=== PATIENT | female | born 1950 | race Caucasian/White ===

== ENCOUNTER 2017-01-26 10:23 | Emergency (ER) | payer MEDICARE ==
--- NOTE | 2017-01-26 11:06 | UC ---
Lower Extremity/Ankle HPI - HPI Summary HPI Summary: left foot pain for 2 days, worse last night, foot feels like it is swollen and pain is mostly bottom and lateral, no known injury - History of Current Complaint Chief Complaint: UCLowerExtremity Stated Complaint: FOOT COMPLAINT Time Seen by Provider: 01/26/17 11:03 Hx Obtained From: Patient ?: No Onset/Duration: Sudden Onset, Lasting Days - 2, Still Present, Worse Since - last night Severity Initially: Moderate Severity Currently: Moderate Pain Intensity: 5 - refused pain med Pain Scale Used: 0-10 Numeric Aggravating Factor(s): Standing, Ambulation Alleviating Factor(s): Rest, OTC Meds Able to Bear Weight: Yes - Allergies/Home Medications Allergies/Adverse Reactions: Allergies Allergy/AdvReac Type Severity Reaction Status Date / Time No Known Allergies Allergy Verified 09/20/14 13:25 Home Medications: Home Medications Verapamil SR TAB* [Calan Sr TAB*] 240 mg PO QAM 01/26/17 [History Confirmed 09/13] PMH/Surg Hx/FS Hx/Imm Hx Previously Healthy: Yes Endocrine History: Dyslipidemia Cardiovascular History: Hypertension - Surgical History Surgical History: Yes Surgery Procedure, Year, and Place: TONSILLECTOMY- AGE 16. UMBILICAL HERNIA REPAIR, 2001, [facility] [place]. LITHOTRIPSY- STENT INSERTION - SEVERAL- SOME DONE HERE AT [facility] [place]. LAST 10/05/12. lump in breast removed, benign - Family History Known Family History: Positive: Cardiac Disease - father, Hypertension - father Negative: Diabetes - Social History Occupation: Retired Lives: With Family Alcohol Use: None Substance Use Type: None Smoking Status (MU): Never Smoked Tobacco Review of Systems Constitutional: Negative Skin: Negative Eyes: Negative ENT: Negative Respiratory: Negative Cardiovascular: Negative Gastrointestinal: Negative Genitourinary: Negative Motor: Negative Neurovascular: Negative Musculoskeletal: Arthralgia - left foot Neurological: Negative Psychological: Negative All Other Systems Reviewed And Are Negative: Yes Physical Exam Triage Information Reviewed: Yes Appearance: Well-Appearing, No Pain Distress, Obese Vital Signs: Initial Vital Signs Temp 97.8 F 01/26/17 10:41 Pulse 62 01/26/17 10:41 Resp 18 01/26/17 10:41 BP 117/60 01/26/17 10:41 Pulse Ox 97 01/26/17 10:41 Vital Signs Reviewed: Yes Eye Exam: Normal Eyes: Positive: Conjunctiva Clear ENT Exam: Normal ENT: Positive: Normal ENT inspection, Hearing grossly normal, TMs normal. Negative: Nasal congestion, Nasal drainage, Tonsillar swelling, Tonsillar exudate, Trismus, Muffled/hoarse voice Dental Exam: Normal Neck exam: Normal Neck: Positive: Supple, Nontender, No Lymphadenopathy Respiratory Exam: Normal Respiratory: Positive: Chest non-tender, Lungs clear, Normal breath sounds, No respiratory distress, No accessory muscle use Cardiovascular Exam: Normal Cardiovascular: Positive: RRR, No Murmur, Pulses Normal, Brisk Capillary Refill Musculoskeletal Exam: Normal Musculoskeletal: Positive: Strength Intact, ROM Intact, Edema @ - left foot Neurological Exam: Normal Neurological: Positive: Alert, Muscle Tone Normal Psychological Exam: Normal Skin Exam: Normal Diagnostics - Radiology No standard instances Xray Interpretation: No Acute Changes Radiology Interpretation Completed By: Radiologist Lower Extremity Course/Dx - Course Course Of Treatment: Pain Med. follow with ortho and podiatry - Differential Dx/Diagnosis Differential Diagnosis/HQI/PQRI: Cellulitis, Contusion, Fracture (Closed), Sprain, Strain Provider Diagnoses: Left foot pain Discharge - Discharge Plan Condition: Stable Disposition: HOME Prescriptions: Hydrocodone-Acetaminophen [Hydrocodone/Acetaminophen 5-325 mg] 1 tab PO BID PRN #15 tab MDD 2 PRN Reason: Pain Patient Education Materials: Foot Contusion (ED) Referrals: Jd Schwartz MD [Primary Care Provider] - If Needed Yadiel Philip DPM [Doctor of Podiatric Medicine] - 5 Days
[2017-01-26 12:43] VITALS: BP 114/60
--- NOTE | 2017-01-26 12:46 | RAD ---
Indication: Left foot pain. 3 views of left foot demonstrates no fracture. No other bone or joint abnormality is identified. IMPRESSION: No definite fracture of left foot is noted.
== END 2017-01-26 13:03 | disposition home or self-care (01) ==
LOC: UCEAST 10:23
DX: M79.672 Pain in left foot (principal); E78.5 Hyperlipidemia, unspecified; I10 Essential (primary) hypertension
CPT/HCPCS: 99212; G0463

== ENCOUNTER 2017-06-06 07:50 | Day surgery (SDC) | payer MEDICARE ==
[~2017-06-06 07:50] MED LIST: Buffered Lidocaine 0.9% SYRIN* 5 ML/SYR SYRINGE INTRADERM ONE; NS 0.9% 1000 ML* 1,000 ML IV SCH
[2017-06-06] MEDS ORDERED: ceFAZolin 2 GM PREMIX (*) 50 ML IVPB ONE (08:11)
[2017-06-06] MEDS ORDERED: ceFAZolin 1 GM ADVAN(*) 1 GM ADDV.VIAL IVPB ONE (08:11)
[2017-06-06] MEDS ORDERED: Ondansetron INJ* 2 MG/ML VIAL IV PRN (09:14)
[2017-06-06] MEDS ORDERED: Acetaminophen TAB* 325 MG PO PRN (09:14)
[2017-06-06] MEDS ORDERED: DiMENhydriNATE IV* 50 MG/ML VIAL IV PUSH PRN (09:14)
[2017-06-06] MEDS ORDERED: Midazolam* 1 MG/ML 2 ML VIAL (2 MG) ONE ×2 (09:23→10:11)
[2017-06-06] MEDS ORDERED: Lidocaine 1% MPF wEPI 200,000* 30 ML SDV ONE (09:33)
[2017-06-06] MEDS ORDERED: Mineral Oil Sterile, TOPICAL* 25 ML BTL ONE (09:41)
[2017-06-06] MEDS ORDERED: Methylene Blue 0.5 %* 50 MG/10 ML AMP IV ONE (09:41)
[2017-06-06] MEDS ORDERED: KETAMINE HCL* 50 MG/ML 10 ML VIAL ONE (10:12)
[2017-06-06] MEDS ORDERED: fentaNYL* 50 MCG/ML 2 ML VIAL (100 MCG VIAL) ONE (10:12)
[2017-06-06] MEDS ORDERED: Lidocaine 2% PF * 5 ML VIAL ONE (10:18)
[2017-06-06] MEDS ORDERED: Famotidine IV* 10 MG/ML 2 ML (20 mg) ONE (10:18)
[2017-06-06] MEDS ORDERED: Propofol* 10 MG/ML 20 ML BTL IV PUSH ONE (10:18)
[2017-06-06 11:54] VITALS: BP 123/92
== END 2017-06-06 12:00 | disposition home or self-care (01) ==
LOC: OR 07:50
PROVIDERS: ATTEND Plastic Surgery
DX: C44.311 Basal cell carcinoma of skin of nose (principal); I10 Essential (primary) hypertension; F41.8 Other specified anxiety disorders; E66.01 Morbid (severe) obesity due to excess calories; Z85.820 Personal history of malignant melanoma of skin
CPT/HCPCS: 88305; 88331; 88332; A9270-GY; J0690; J2001; J2250; J2704; J3010

== ENCOUNTER 2018-10-31 08:14 | Day surgery (SDC) | payer MEDICARE ==
[~2018-10-31 08:14] MED LIST changes: +Acetaminophen TAB* 325 MG PO PRN; -Buffered Lidocaine 0.9% SYRIN* 5 ML/SYR SYRINGE INTRADERM ONE; +Buffered Lidocaine 1% SYRIN* 1 ML/SYRINGE INTRADERM ONE; -NS 0.9% 1000 ML* 1,000 ML IV SCH
[2018-10-31] MEDS ORDERED: Midazolam* 1 MG/ML 2 ML VIAL (2 MG) ONE (10:37)
--- NOTE | 2018-10-31 11:20 | OP ---
OPERATIVE NOTE: DATE OF OPERATION: 10/31/18 DATE OF : 46 SURGEON: Barry Burdick M.D. PREOPERATIVE DIAGNOSIS: Cataract, right eye. POSTOPERATIVE DIAGNOSIS: Cataract, right eye. OPERATIVE PROCEDURE: Extracapsular cataract extraction with intraocular lens implant, right eye. PROCEDURE: The patient was brought to the operating room after being given 1/2% Alcaine with epineph rine drops in the preoperative area. The eye was prepped and draped in the usual sterile fashion. S terile drape and eyelid speculum were placed. Again, topical 1/2% Alcaine with epinephrine was given . A paracentesis incision was made at the 9 o'clock position with the No. 75 blade. Clear cornea in cision 2.2 x 2.2-mm was created at the 12 o'clock position starting at the anterior limbus using the 2.2-mm keratome. The anterior chamber was irrigated with 0.4 mL of 1% non-preservative intracameral lidocaine and filled with DisCoVisc. A capsulorrhexis was completed using the cystotome and the Utra ta forceps. Hydrodissection was performed with balanced salt solution. The lens nucleus was removed with the Phacoemulsification handpiece without incident. Cortex was removed with the irrigation-aspi ration handpiece. The capsular bag was re-inflated using DisCoVisc and an SN60WF 21.5 implant was in serted with the shooter. The irrigation-aspiration handpiece was used to remove all residual DisCoVi sc. The eye was refilled with balanced salt solution and the wound checked and found to be watertigh t. Topical Maxitrol drops were given. [id number]/[facility] #: [id number]
[2018-10-31 11:48] VITALS: BP 164/74
[2018-10-31] MEDS ORDERED: Lidocaine 1%* 5 ML VIAL ONE (12:26)
[2018-10-31] MEDS ORDERED: Proparacaine 0.5% OPHTH.SOL* 15 ML BTL ONE (12:26)
[2018-10-31] MEDS ORDERED: Povidone Iodine 5% OPTH* 30 ML BTL ONE (12:26)
[2018-10-31] MEDS ORDERED: Ketorolac 0.5% OPHTH (NF) 0.5 % 5 ML BTL ONE (12:26)
[2018-10-31] MEDS ORDERED: Lidocaine 2% EPI 1:200000 MPF*10-20 ML VIAL ONE (12:26)
[2018-10-31] MEDS ORDERED: acetaZOLAMIDE TAB* 250 MG ONE (12:26)
[2018-10-31] MEDS ORDERED: Neomycin/Polymy/Dex OPTH.SUSP* MAXITROL 0.1% 5 ML ONE (12:26)
[2018-10-31] MEDS ORDERED: Cyclopentolate 1% OPTH.SOL* 2 ML BTL ONE (12:26)
== END 2018-10-31 11:22 | disposition home or self-care (01) ==
LOC: OREAST 08:14
PROVIDERS: ATTEND Specialist
DX: H25.811 Combined forms of age-related cataract, right eye (principal); H04.123 Dry eye syndrome of bilateral lacrimal glands; I10 Essential (primary) hypertension; Z85.828 Personal history of other malignant neoplasm of skin
CPT/HCPCS: A9270-GY; J2250; V2632

== ENCOUNTER → 2019-06-26 05:37 | Day surgery (SDC) | payer MEDICARE ==
[~2019-06-26 05:37] MED LIST changes: +Acetaminophen IV 1GM/100ML * 1,000 MG/100 ML VIAL IVPB ONE; +Acetaminophen IV 1GM/100ML * 100 ML ONE; -Acetaminophen TAB* 325 MG PO PRN; +Bupivacaine 0.25% SDV PF* 10 ML VIAL INJ ONE; +DiMENhydriNATE IV* 50 MG/ML VIAL IV PUSH PRN; +Lactated Ringers 1000 ML Bag* 1,000 ML IV SCH; +Lidocaine 2% PF * 5 ML VIAL ONE; +Naloxone* 0.4 MG/ML 1 ML VIAL IV PRN; +Ondansetron INJ* 2 MG/ML VIAL IV PRN; +Ondansetron INJ* 2 MG/ML VIAL ONE; +Propofol* 10 MG/ML 20 ML BTL ONE; +Rocuronium* 10 MG/ML VIAL ONE; +Sodium Citrate/Citric Acid* 15 ML UDC ONE; +Sodium Citrate/Citric Acid* 15 ML UDC PO ONE; +ceFAZolin 1 GM ADVAN(*) 1 GM ADDV.VIAL IVPB ONE; +ceFAZolin 2 GM PREMIX in ORs 2 GM/50 ML BAG ONE; +fentaNYL* 50 MCG/ML 2 ML VIAL (100 MCG VIAL) IV PRN; +fentaNYL* 50 MCG/ML 2 ML VIAL (100 MCG VIAL) ONE
--- NOTE | 2019-06-26 09:16 | OP ---
Operative Report - Blank - Operative Report Date of Operation: 06/26/19 Note: Operative Note Preop Dx: Cholelithiasis Postop Dx: same Procedure: Laparoscopic Cholecystectomy Anesthesia: SANYA Banerjee Surgeon: Dr Laureano Computer Processing Scheduler: JULIÁN Olivas, Antonio WATTS EBL: Minimal Specimen: GB Fluids: 1300cc LR Drains: None Findings: As Above
[2019-06-26 09:51] VITALS: BP 109/56
--- NOTE | 2019-06-26 10:39 | OP ---
CC: Dr. Jd Schwartz * DATE OF OPERATION: 06/26/19 - [facility] DATE OF : 46 SURGEON: Wiley Laureano MD ASSISTANTS: JULIÁN Moody and JULIÁN Alvarez student. ANESTHESIOLOGIST: Dr. Sellers. ANESTHESIA: General anesthesia. PRE-OP DIAGNOSIS: Symptomatic cholecystitis. POST-OP DIAGNOSIS: Symptomatic cholecystitis. OPERATIVE PROCEDURE: Laparoscopic cholecystectomy. ESTIMATED BLOOD LOSS: 50 cc. FLUIDS: Crystalloid fluid given 2 L. SPECIMENS: Gallbladder. DRAINS: None. DESCRIPTION OF PROCEDURE: The patient was identified in the preoperative area. She was marked. Consent was signed. We discussed the case with her again. She was then taken to the operating room and placed on the operating table in supine position. Preoperative antibiotics were given. Sequential devices were placed on bilateral lower extremities. General anesthesia was induced. The patient's abdomen was then prepped and draped in standard surgical fashion. A time- out was performed. A periumbilical incision was made and an optical 5 mm trocar was inserted into the abdominal cavity. This was then allowed to insufflate to a pressure of 15 mmHg. The patient tolerated the insufflation well. Review of the abdomen showed no bleeding or injury from the placement of the trocar. Then, I put additional trocars in the following position: A 12 mm in the subxiphoid area and two 5 mm along the right costal margin. The patient was repositioned to head up right side up. We were able to grasp the fundus and the gallbladder and elevate this above the liver. The liver was quite large and this was heavy, but we were able to get a critical view. We then identified the infundibular region. There were no adhesions to this. This was grasped and retracted towards right lower quadrant. We then performed a sharp dissection and electrocautery to expose the and then took the peritoneum off the medial aspect of the gallbladder. The cystic duct was identified. The lateral aspect of the gallbladder's peritoneum was then taken as well. The cystic duct was isolated but the cystic artery was not quite clear. There were multiple small branches and we did avulse some of these and they did require cautery without clips. Then we were able to isolate and see there was only one structure going to the gallbladder and we doubly clipped this and ligated it. This allowed us to see better posteriorly and isolated the cystic artery at this point and doubly clipped this and ligated it. We then removed the gallbladder from the liver bed, placed in an endoscopic retrieval bag. Review of the cystic artery stump showed no bleeding or no bile. We irrigated and suctioned this off until the was clean. We the put the patient back to a neutral position and removed the gallbladder with an endoscopic retrieval bag through the subxiphoid port. We had to collect the stones before we could get the specimen out altogether. We then irrigated that wound at the subxiphoid area and placed the camera through the trocar. Again, we saw no bleeding over the liver, but did not look back down at the gallbladder fossa. We then allowed the abdomen to collapse. Trocars were removed under direct vision and all 4 skin incisions were reapproximated with 4-0 Monocryl subcuticular sutures followed by Steri-Strips and sterile dressing. [id number]/[facility] #: [id number] GIOVANI
== END | disposition home or self-care (01) ==
LOC: OR 05:37
PROVIDERS: ATTEND Surgery
DX: K80.10 Calculus of gallbladder with chronic cholecystitis without obstruction (principal); Z68.43 Body mass index [BMI] 50.0-59.9, adult; I10 Essential (primary) hypertension; Z87.442 Personal history of urinary calculi; M19.90 Unspecified osteoarthritis, unspecified site; K21.9 Gastro-esophageal reflux disease without esophagitis; E66.01 Morbid (severe) obesity due to excess calories
CPT/HCPCS: 88304; A9270-GY; J0690; J2405; J2704; J3010; J3490

== ENCOUNTER 2022-02-18 10:39 | Inpatient (IN) ==
[2022-02-18] MEDS ORDERED: Lactated Ringers 1000 ml BAG 1,000 ML IV ONE ×2 (11:24→12:07)
[2022-02-18 11:45] LABS: ABS Basophils 0.1 10^3/ul (0-0.2); ABS Lymphocytes 0.4 10^3/ul (1.0-4.8); ABS Monocytes 0.2 10^3/ul (0-0.8); ABS Neutrophils 16.2 10^3/ul (1.5-7.7); Eosinophil % 0.1 %; Hematocrit 39 % (35-47); Lymphocyte % 2.2 %; Mean Corpuscular HGB Conc 33 g/dL (31-36); Mean Corpuscular Hemoglobin 31 pg (27-31); Mean Corpuscular Volume 92 fL (80-97); Mean Platelet Volume 8.4 fL (7.4-10.4); Nucleated Red Blood Cells % 0.1; Platelet Count 253 10^3/uL (150-450); Red Blood Count 4.27 10^6 /uL (3.70-4.87); Red Cell Distribution Width 14 % (10-15); White Blood Count 16.8 10^3/uL (3.5-10.8)
[2022-02-18 11:58] LABS: Urine Appearance Cloudy; Urine Bilirubin Negative (Negative); Urine Blood 2+ (Negative); Urine Color Yellow; Urine Glucose Negative (Negative); Urine Ketones Negative (Negative); Urine Nitrite Positive (Negative); Urine Protein 2+(100 mg/dL) (Negative); Urine Specific Gravity 1.012 (1.002-1.030); Urine Urobilinogen Negative (Negative)
[2022-02-18] MEDS ORDERED: cefTRIAXone 2 gm/50 mL D5W 2 GM/50 ML BAG IV ONE (12:07)
[2022-02-18 12:16] LABS: Albumin 3.8 g/dL (3.2-5.2); Albumin/Globulin Ratio 1.4 (1-3); C Reactive Protein 13.69 mg/L (<8.01); Calcium 9.2 mg/dL (8.6-10.3); Globulin 2.8 g/dL (2-4); Potassium 3.4 mmol/L (3.5-5.0); Total Bilirubin 0.7 mg/dL (0.2-1.0); Total Protein 6.6 g/dL (6.4-8.9); eGFR CKD-EPI 47.3 (>60)
[2022-02-18 12:31] LABS: Urine Bacteria 3+ (Absent); Urine Red Blood Cell 3+(>10/hpf) (Absent); Urine Squamous Epithelial Cell Present (Absent); Urine White Blood Cell 3+(>20/hpf) (Absent)
[2022-02-18 12:41] LABS: Activated Partial Thrombo Time 24.1 seconds (26.0-38.0); INR 1.03 (0.86-1.15)
[2022-02-18] MEDS ORDERED: Potassium Chlor 20 meq TAB.ER PO ONE (13:18)
[2022-02-18] MEDS ORDERED: Ondansetron 4 mg VIAL 2 MG/ML 2 ml VIAL IV PRN (17:55)
[2022-02-18] MEDS: Enoxaparin 40 MG/0.4 ML SYR SUBCUT SCH (18:53)
[2022-02-18] MEDS: Lactated Ringers 1000 ml BAG 1,000 ML IV SCH (18:54)
[2022-02-19] MEDS: RIZATRIPTAN 10 MG PO PRN ×2 (02:15→09:23)
[2022-02-19 05:50] LABS: ABS Basophils 0.1 10^3/ul (0-0.2); ABS Eosinophils 0.1 10^3/ul (0-0.6); ABS Lymphocytes 1.2 10^3/ul (1.0-4.8); ABS Monocytes 1.4 10^3/ul (0-0.8); ABS Neutrophils 17.7 10^3/ul (1.5-7.7); Eosinophil % 0.3 %; Hematocrit 37 % (35-47); Hemoglobin 12.6 g/dL (12.0-16.0); Lymphocyte % 5.8 %; Mean Corpuscular HGB Conc 34 g/dL (31-36); Mean Corpuscular Hemoglobin 31 pg (27-31); Mean Corpuscular Volume 92 fL (80-97); Mean Platelet Volume 8.6 fL (7.4-10.4); Platelet Count 234 10^3/uL (150-450); Red Blood Count 4.04 10^6 /uL (3.70-4.87); Red Cell Distribution Width 14 % (10-15); White Blood Count 20.4 10^3/uL (3.5-10.8)
[2022-02-19 06:25] LABS: Calcium 8.9 mg/dL (8.6-10.3); Magnesium 1.3 mg/dL (1.9-2.7); eGFR CKD-EPI 37.5 (>60)
[2022-02-19] MEDS ORDERED: Magnesium Sulfate IV 3 GM in NS 0.9% 100 ml BAG 100 ML IVPB ONE (08:04)
[2022-02-19 08:47] LABS: Phosphorus 2.1 mg/dL (2.5-5.0)
[2022-02-19] MEDS ORDERED: Zosyn per Pharmacy NOTE FOLLOW UP SCH (09:00)
[2022-02-19] MEDS: Lactated Ringers 1000 ml BAG 1,000 ML IV SCH (09:16)
[2022-02-19] MEDS: DULoxetine DR 30 mg CAP PO SCH (09:16)
[2022-02-19] MEDS: buPROPion SR 200 mg TAB.SR PO SCH (09:23)
[2022-02-19] MEDS ORDERED: Piperacillin/Tazobac ADVAN 3.375 GM in NS 0.9% 100 ml BAG 100 ML IV ONE (09:30)
[2022-02-19] MEDS ORDERED: Magnesium Sulfate 2 GM IV (Premix) IVPB ONE (09:30)
[2022-02-19] MEDS ORDERED: cefTRIAXone 1 gm/50 mL D5W 1 GM/50 ML BAG IV SCH (10:00)
[2022-02-19] MEDS ORDERED: Magnesium Sulfate 1 GM IV 1 GM/100 ML BAG IV ONE (10:30)
[2022-02-19] MEDS ORDERED: Famotidine IV 10 MG/ML 2 ml VIAL (20 mg) IV SLOW PU ONE (14:33)
[2022-02-19] MEDS ORDERED: Iohexol 180 (CONTRAST) 10 ML SDV IV ONE (15:10)
[2022-02-19] MEDS: ZOSYN 3.375 GM Q8H per EXTENDED INFUSION IV SCH (15:23)
[2022-02-19] MEDS ORDERED: Ketamine HCL 50 mg/ml 10 ml VIAL (500 MG) ONE (16:05)
[2022-02-19] MEDS ORDERED: Midazolam 2 mg/2 ml VIAL 1 mg/ml 2 ml VIAL (2 mg) ONE (16:05)
[2022-02-19] MEDS ORDERED: Propofol 10 MG/ML 20 ML BTL ONE ×2 (16:05→16:46)
[2022-02-19] MEDS ORDERED: Ondansetron 4 mg VIAL 2 MG/ML 2 ml VIAL ONE (16:05)
[2022-02-19] MEDS ORDERED: Metoclopramide 5 MG/ML VIAL (10 mg) ONE (16:05)
[2022-02-19] MEDS ORDERED: fentaNYL 100 mcg/2 ml 50 MCG/ML VIAL ONE (16:26)
[2022-02-19] MEDS: Enoxaparin 40 MG/0.4 ML SYR SUBCUT SCH (18:30)
[2022-02-19] MEDS: Potassium & Sodium Phos 250 mg = 1 PACKET PO SCH (20:29)
[2022-02-19] MEDS ORDERED: Lactated Ringers 1000 ml BAG 1,000 ML IV SCH (23:44)
[2022-02-20] MEDS: ZOSYN 3.375 GM Q8H per EXTENDED INFUSION IV SCH ×2 (00:15→07:54)
[2022-02-20 06:16] LABS: ABS Basophils 0.1 10^3/ul (0-0.2); ABS Eosinophils 0.1 10^3/ul (0-0.6); ABS Lymphocytes 1.4 10^3/ul (1.0-4.8); ABS Monocytes 1.2 10^3/ul (0-0.8); ABS Neutrophils 10.8 10^3/ul (1.5-7.7); Eosinophil % 0.8 %; Hematocrit 38 % (35-47); Hemoglobin 12.1 g/dL (12.0-16.0); Lymphocyte % 10.3 %; Mean Corpuscular HGB Conc 32 g/dL (31-36); Mean Corpuscular Hemoglobin 30 pg (27-31); Mean Corpuscular Volume 92 fL (80-97); Mean Platelet Volume 8.5 fL (7.4-10.4); Platelet Count 215 10^3/uL (150-450); Red Blood Count 4.06 10^6 /uL (3.70-4.87); Red Cell Distribution Width 14 % (10-15); White Blood Count 13.7 10^3/uL (3.5-10.8)
[2022-02-20 06:37] LABS: Calcium 8.7 mg/dL (8.6-10.3); eGFR CKD-EPI 33.8 (>60)
[2022-02-20] MEDS ORDERED: Magnesium Sulfate 2 gm BAG 2 GM/50 ML BAG IVPB ONE (07:45)
[2022-02-20] MEDS: Potassium & Sodium Phos 250 mg = 1 PACKET PO SCH ×2 (08:18→21:28)
[2022-02-20] MEDS: buPROPion SR 200 mg TAB.SR PO SCH (08:18)
[2022-02-20] MEDS: DULoxetine DR 30 mg CAP PO SCH (08:18)
[2022-02-20] MEDS: cefTRIAXone 2 gm/50 mL D5W 2 GM/50 ML BAG IV SCH (14:15)
[2022-02-20] MEDS: Enoxaparin 40 MG/0.4 ML SYR SUBCUT SCH (17:58)
[2022-02-21 06:01] LABS: ABS Basophils 0.1 10^3/ul (0-0.2); ABS Eosinophils 0.1 10^3/ul (0-0.6); ABS Lymphocytes 1.3 10^3/ul (1.0-4.8); ABS Monocytes 0.9 10^3/ul (0-0.8); ABS Neutrophils 8.4 10^3/ul (1.5-7.7); Eosinophil % 1.2 %; Hematocrit 34 % (35-47); Hemoglobin 11.2 g/dL (12.0-16.0); Lymphocyte % 12.2 %; Mean Corpuscular HGB Conc 33 g/dL (31-36); Mean Corpuscular Hemoglobin 30 pg (27-31); Mean Corpuscular Volume 91 fL (80-97); Mean Platelet Volume 8.7 fL (7.4-10.4); Platelet Count 187 10^3/uL (150-450); Red Blood Count 3.69 10^6 /uL (3.70-4.87); Red Cell Distribution Width 14 % (10-15); White Blood Count 10.9 10^3/uL (3.5-10.8)
[2022-02-21 06:12] LABS: Calcium 8.3 mg/dL (8.6-10.3); Magnesium 2.1 mg/dL (1.9-2.7); eGFR CKD-EPI 42.6 (>60)
[2022-02-21] MEDS: DULoxetine DR 30 mg CAP PO SCH (09:32)
[2022-02-21] MEDS: buPROPion SR 200 mg TAB.SR PO SCH (09:32)
[2022-02-21] MEDS: Potassium & Sodium Phos 250 mg = 1 PACKET PO SCH ×2 (09:32→20:20)
[2022-02-21] MEDS ORDERED: Senna TAB 8.6 mg TAB PO ONE (11:39)
[2022-02-21] MEDS ORDERED: Polyethylene Glycol 3350 17 GM PACKET PO PRN (11:39)
[2022-02-21] MEDS: cefTRIAXone 2 gm/50 mL D5W 2 GM/50 ML BAG IV SCH (11:39)
[2022-02-21] MEDS: Enoxaparin 40 MG/0.4 ML SYR SUBCUT SCH (18:01)
[2022-02-22 05:41] LABS: Hematocrit 34 % (35-47); Hemoglobin 11.5 g/dL (12.0-16.0); Mean Corpuscular HGB Conc 34 g/dL (31-36); Mean Corpuscular Hemoglobin 31 pg (27-31); Mean Corpuscular Volume 91 fL (80-97); Mean Platelet Volume 8.4 fL (7.4-10.4); Platelet Count 214 10^3/uL (150-450); Red Blood Count 3.78 10^6 /uL (3.70-4.87); Red Cell Distribution Width 14 % (10-15); White Blood Count 9.1 10^3/uL (3.5-10.8)
[2022-02-22 06:00] LABS: Calcium 8.4 mg/dL (8.6-10.3); Potassium 3.9 mmol/L (3.5-5.0); eGFR CKD-EPI 57.4 (>60)
[2022-02-22] MEDS: Potassium & Sodium Phos 250 mg = 1 PACKET PO SCH (10:22)
[2022-02-22] MEDS: DULoxetine DR 30 mg CAP PO SCH (10:22)
[2022-02-22] MEDS: buPROPion SR 200 mg TAB.SR PO SCH (10:22)
[2022-02-22] MEDS: cefTRIAXone 2 gm/50 mL D5W 2 GM/50 ML BAG IV SCH ×2 (13:25→14:13)
[2022-02-22] MEDS ORDERED: cefTRIAXone 2 GM ADDV.VIAL 2 GM in NS 0.9% 100 ml BAG 100 ML IVPB SCH (13:48)
[2022-02-22 13:54] VITALS: BP 156/69
[2022-02-22] MEDS ORDERED: cefTRIAXone 2 gm/50 mL D5W 2 GM/50 ML BAG IV ONE (14:15)
[2022-02-23] MEDS ORDERED: cefTRIAXone 2 GM ADDV.VIAL 2 GM in NS 0.9% 100 ml BAG 100 ML IVPB SCH (12:00)
== END 2022-02-22 16:30 | disposition home or self-care (01) | DRG 872 ==
LOC: ED 10:39 → SUATTDRO 14:50 → EDHOLD 14:50 → MEDTELE 21:01
PROVIDERS: ADMIT Internal Medicine; ATTEND Internal Medicine

== ENCOUNTER 2023-08-11 18:40 | Observation (INO) ==
[2023-08-11] MEDS ORDERED: Vancomycin 1,000 MG in NS 0.9% 250 ml 250 ML IVPB ONE (18:51)
[2023-08-11 19:31] LABS: ABS Basophils 0.2 10^3/uL (0.0-0.1); ABS Eosinophils 0.1 10^3/uL (0.0-0.5); ABS Lymphocytes 1.9 10^3/uL (1.0-4.8); ABS Monocytes 0.8 10^3/uL (0.0-0.9); ABS Neutrophils 8.1 10^3/uL (1.5-7.6); ABS Nucleated RBC 0.02 10^3/ul; Eosinophil % 1.3 %; Hematocrit 42.2 % (35-45); Hemoglobin 14.3 g/dL (11.5-14.3); Lymphocyte % 17.6 %; Mean Corpuscular Hgb Conc 33.9 g/dL (31-36); Mean Corpuscular Volume 88.5 fL (80-97); Mean Platelet Volume 8.1 fL (7.5-11.2); Nucleated Red Blood Cells % 0.2 %/100WBC (0.0-0.8); Platelet Count 268 10^3/uL (150-450); Red Blood Count 4.77 10^6/uL (3.63-4.92); Red Cell Distribution Width 13.7 % (12-17); White Blood Count 11.1 10^3/uL (3.8-11.8)
[2023-08-11 19:45] LABS: INR 1.01 (0.83-1.13)
[2023-08-11 19:47] LABS: Albumin/Globulin Ratio 1.4 (1-3); C Reactive Protein 6.21 mg/L (<8.01); Calcium 9.6 mg/dL (8.6-10.3); Creatinine, Serum 1.21 mg/dL (0.51-0.95); Globulin 2.9 g/dL (2-4); Potassium 3.3 mmol/L (3.5-5.0); Total Bilirubin 0.3 mg/dL (0.2-1.0); Total Protein 6.9 g/dL (6.4-8.9)
[2023-08-11] MEDS ORDERED: Potassium Chlor 20 meq TAB.ER PO ONE (21:53)
[2023-08-11] MEDS ORDERED: Lactated Ringers 1000 ml BAG 1,000 ML IV SCH (22:00)
[2023-08-11] MEDS ORDERED: Vancomycin per Pharmacy 1 EA NOTE FOLLOW UP SCH (22:00)
[2023-08-11] MEDS: Enoxaparin 40 MG/0.4 ML SYR SUBCUT SCH (22:13)
[2023-08-11 22:41] LABS: Urine Appearance Turbid; Urine Bacteria Absent (Absent); Urine Bilirubin Negative (Negative); Urine Blood 3+ (Negative); Urine Glucose Negative (Negative); Urine Ketones Negative (Negative); Urine Nitrite Negative (Negative); Urine Protein 2+(100 mg/dL) (Negative); Urine Red Blood Cell 3+(>10/hpf) (Absent); Urine Specific Gravity 1.018 (1.002-1.030); Urine Squamous Epithelial Cell Present (Absent); Urine Urobilinogen Negative (Negative); Urine White Blood Cell 2+(11-20/hpf) (Absent)
[2023-08-11 22:44] LABS: Urine Color Amber
[2023-08-11 22:45] LABS: Magnesium 1.7 mg/dL (1.9-2.7)
[2023-08-12] MEDS ORDERED: Magnesium Sulfate 2 gm BAG 2 GM/50 ML BAG IVPB ONE (03:50)
[2023-08-12 05:28] LABS: Hematocrit 39.7 % (35-45); Hemoglobin 13.9 g/dL (11.5-14.3); Mean Corpuscular Hemoglobin 30.6 pg (27-33); Mean Corpuscular Hgb Conc 34.9 g/dL (31-36); Mean Corpuscular Volume 87.8 fL (80-97); Mean Platelet Volume 8.1 fL (7.5-11.2); Platelet Count 217 10^3/uL (150-450); Red Blood Count 4.53 10^6/uL (3.63-4.92); Red Cell Distribution Width 13.7 % (12-17); White Blood Count 8.9 10^3/uL (3.8-11.8)
[2023-08-12 05:46] LABS: Calcium 8.9 mg/dL (8.6-10.3); Creatinine, Serum 1.1 mg/dL (0.51-0.95); Magnesium 2.5 mg/dL (1.9-2.7); Potassium 3.6 mmol/L (3.5-5.0); eGFR CKD-EPI 52.7 (>60)
[2023-08-12] MEDS: Nystatin TOP POWDER 15 GM BTL TOPICAL SCH ×2 (09:22→21:43)
[2023-08-12] MEDS: DULoxetine DR 30 mg CAP PO SCH ×2 (09:22→21:42)
[2023-08-12] MEDS ORDERED: Iohexol 180 (CONTRAST) 10 ML SDV IV ONE (10:07)
[2023-08-12] MEDS ORDERED: Propofol 10 MG/ML 20 ML BTL ONE (10:10)
[2023-08-12] MEDS ORDERED: Ondansetron 4 mg VIAL 2 MG/ML 2 ml VIAL ONE (10:10)
[2023-08-12] MEDS ORDERED: Acetaminophen IV 1 GM/100ML 1,000 MG/100 ML BAG IV ONE (10:11)
[2023-08-12] MEDS ORDERED: Dexamethasone IV 4 MG/ML VIAL 1 ml VIAL ONE (10:12)
[2023-08-12] MEDS ORDERED: fentaNYL 100 mcg/2 ml 50 MCG/ML VIAL IV PRN (12:24)
[2023-08-12] MEDS ORDERED: Naloxone 0.4 mg VIAL 0.4 mg/ml 1 ml VIAL IV PRN (12:24)
[2023-08-12] MEDS ORDERED: Vancomycin 1,500 MG in NS 0.9% 250 ml 250 ML IVPB SCH (20:00)
[2023-08-12] MEDS: Enoxaparin 40 MG/0.4 ML SYR SUBCUT SCH (21:43)
[2023-08-13 08:04] LABS: Creatinine, Serum 1.19 mg/dL (0.51-0.95)
[2023-08-13] MEDS: DULoxetine DR 30 mg CAP PO SCH (10:18)
[2023-08-13 10:23] VITALS: BP 152/80
[2023-08-14] MEDS ORDERED: Vancomycin Trough Check NOTE FOLLOW UP ONE (19:30)
== END 2023-08-13 11:30 | disposition home or self-care (01) ==
LOC: EDHOLD 18:40 → ED 18:40 → SUATTDRO 21:05 → MED 08-12 01:10
PROVIDERS: ADMIT Internal Medicine; ATTEND Student in an Organized Health Care Education/Training Program

== ENCOUNTER 2023-09-17 18:00 | Observation (INO) ==
[2023-09-17 19:14] LABS: Urine Color Red
[2023-09-17 19:27] LABS: Urine Appearance Turbid; Urine Bacteria Absent (Absent); Urine Red Blood Cell 3+(>10/hpf) (Absent); Urine Specific Gravity 1.019 (1.002-1.030); Urine Squamous Epithelial Cell Present (Absent); Urine White Blood Cell 3+(>20/hpf) (Absent)
[2023-09-17] MEDS ORDERED: Ondansetron 4 mg VIAL 2 MG/ML 2 ml VIAL IV ONE (20:23)
[2023-09-17 21:15] LABS: ABS Basophils 0.1 10^3/uL (0.0-0.1); ABS Eosinophils 0.2 10^3/uL (0.0-0.5); ABS Lymphocytes 1.7 10^3/uL (1.0-4.8); ABS Monocytes 1.1 10^3/uL (0.0-0.9); ABS Neutrophils 9.3 10^3/uL (1.5-7.6); ABS Nucleated RBC 0.03 10^3/ul; Eosinophil % 1.2 %; Hematocrit 39.3 % (35-45); Hemoglobin 13.5 g/dL (11.5-14.3); Mean Corpuscular Hemoglobin 30.1 pg (27-33); Mean Corpuscular Hgb Conc 34.4 g/dL (31-36); Mean Corpuscular Volume 87.5 fL (80-97); Mean Platelet Volume 8.5 fL (7.5-11.2); Nucleated Red Blood Cells % 0.2 %/100WBC (0.0-0.8); Platelet Count 279 10^3/uL (150-450); Red Cell Distribution Width 13.8 % (12-17); White Blood Count 12.4 10^3/uL (3.8-11.8)
[2023-09-17 21:16] LABS: INR 1.02 (0.83-1.13)
[2023-09-17 21:26] LABS: Albumin 4.1 g/dL (3.2-5.2); Albumin/Globulin Ratio 1.4 (1-3); C Reactive Protein 8.03 mg/L (<8.01); Calcium 9.8 mg/dL (8.6-10.3); Creatinine, Serum 1.63 mg/dL (0.51-0.95); Potassium 3.4 mmol/L (3.5-5.0); Total Bilirubin 0.2 mg/dL (0.2-1.0); Total Protein 7.1 g/dL (6.4-8.9); eGFR CKD-EPI 32.7 (>60)
[2023-09-17] MEDS ORDERED: Lactated Ringers 1000 ml BAG 1,000 ML IV ONE (21:29)
[2023-09-17] MEDS ORDERED: Potassium Chlor 20 meq TAB.ER PO ONE (23:40)
[2023-09-18] MEDS ORDERED: cefTRIAXone 2 gm/50 mL D5W 2 GM/50 ML BAG IV ONE (00:36)
[2023-09-18] MEDS ORDERED: Al Hydrox/Mg Hydrox/Simet LIQ 30 ML UDC PO PRN (00:53)
[2023-09-18] MEDS ORDERED: Ondansetron 4 mg VIAL 2 MG/ML 2 ml VIAL IV PRN (01:19)
[2023-09-18] MEDS ORDERED: Senna TAB 8.6 mg TAB PO PRN (01:19)
[2023-09-18] MEDS ORDERED: Polyethylene Glycol 3350 17 GM PACKET PO PRN (01:19)
[2023-09-18 01:47] LABS: Influenza A Molecular Negative (Negative); Influenza B Molecular Negative (Negative)
[2023-09-18 01:51] LABS: Rapid COVID-19 Molecular Undetected (Undetected)
[2023-09-18] MEDS ORDERED: Enoxaparin 30 MG/0.3 ML SYR SUBCUT SCH (02:00)
[2023-09-18] MEDS ORDERED: Vancomycin 1,500 MG in NS 0.9% 250 ml 250 ML IVPB ONE (02:50)
[2023-09-18] MEDS ORDERED: Vancomycin per Pharmacy 1 EA NOTE FOLLOW UP PRN (03:04)
[2023-09-18 05:56] LABS: ABS Basophils 0.2 10^3/uL (0.0-0.1); ABS Eosinophils 0.2 10^3/uL (0.0-0.5); ABS Lymphocytes 3.5 10^3/uL (1.0-4.8); ABS Neutrophils 9.6 10^3/uL (1.5-7.6); Eosinophil % 1.4 %; Hematocrit 38.3 % (35-45); Mean Corpuscular Hemoglobin 29.8 pg (27-33); Mean Corpuscular Volume 87.7 fL (80-97); Mean Platelet Volume 8.5 fL (7.5-11.2); Platelet Count 320 10^3/uL (150-450); Red Blood Count 4.37 10^6/uL (3.63-4.92); Red Cell Distribution Width 13.6 % (12-17); White Blood Count 14.4 10^3/uL (3.8-11.8)
[2023-09-18 06:13] LABS: Calcium 9.3 mg/dL (8.6-10.3); Creatinine, Serum 1.49 mg/dL (0.51-0.95); Potassium 3.7 mmol/L (3.5-5.0); eGFR CKD-EPI 36.4 (>60)
[2023-09-18] MEDS ORDERED: DULoxetine DR 30 mg CAP PO SCH (11:00)
[2023-09-18 13:43] VITALS: BP 146/82
[2023-09-18] MEDS ORDERED: Clotrimazole 1% VAGINAL CREAM 45 GM VAGINAL SCH (21:00)
[2023-09-18] MEDS ORDERED: cefTRIAXone 1 gm/50 mL D5W 1 GM/50 ML BAG IV SCH (22:00)
[2023-09-19] MEDS ORDERED: Vancomycin 1000 MG in NS 0.9% 250 ML IVPB SCH (06:00)
[2023-09-21] MEDS ORDERED: Vancomycin Trough Check NOTE FOLLOW UP ONE (05:30)
== END 2023-09-18 16:35 | disposition home or self-care (01) ==
LOC: ED 18:00 → EDHOLD 18:00 → SUATTDRO 09-18 01:19 → SSU 09-18 07:50
PROVIDERS: ADMIT Internal Medicine; ATTEND Family Medicine